=== PATIENT | male | born 1985 | race Caucasian/White ===

== ENCOUNTER 2024-06-15 01:12 | Inpatient (IN) | payer SELFPAY ==
[2024-06-14 19:19] VITALS: BP 157/100
[2024-06-14 19:34] LABS: Hematocrit 46.5 % (39.0-52.0); Hemoglobin 16.8 g/dL (13.0-18.0); Mean Corp Hgb Conc. 36.1 g/dL (33.0-37.0); Mean Corpuscular Hgb 30.4 pg (27.0-31.0); Mean Corpuscular Volume 84.1 fL (80.0-94.0); Mean Platelet Volume 10.2 fL (7.4-10.4); Platelet Count 187 10^3/uL (130-400); Red Blood Cell Count 5.53 10^6/uL (4.70-6.10); Red Cell Dist. Width 12.7 % (11.5-14.5); White Blood Cell Count 13.8 10^3/uL (4.8-10.8)
[2024-06-14 19:46] LABS: Lactic Acid 1.2 mmol/L (0.7-2.0)
[2024-06-14 19:47] LABS: ALT (SGPT) 37 U/L (0-50); AST (SGOT) 29 U/L (17-59); Albumin 4.9 g/dl (3.5-5.0); Alkaline Phosphatase 60 U/L (38-126); Blood Urea Nitrogen 16 mg/dl (9-20); Calcium 9.4 mg/dl (8.4-10.2); Carbon Dioxide 20 mmol/L (22-30); Chloride 102 mmol/L (98-107); Glucose 143 mg/dl (70-99); Lipase 72 U/L (23-300); Sodium 138 mmol/L (135-145); Total Bilirubin 0.9 mg/dl (0.2-1.3); Total Protein 7.3 g/dl (6.3-8.2); eGFR > 60.00
[2024-06-14 19:53] LABS: % Neutrophils 53.7 % (42.2-75.2)
[2024-06-14 19:54] LABS: % Basophils 0.5 % (0-2); % Eosinophils 1.2 % (0-6); % Immature Granulocytes 0.4 % (0-0.5); % Monocytes 8.2 % (1.7-9.3); Absolute Basophils 0.1 10^3/uL (0-0.2); Absolute Eosinophils 0.2 10^3/uL (0-0.7); Absolute Immature Granulocytes 0.1 10^3/uL (0-0.05); Absolute Monocytes 1.1 10^3/uL (0.1-0.6); Absolute Neutrophils 7.4 10^3/uL (1.4-6.5); Nucleated Red Blood Cells % 0 % (-)
[2024-06-14 22:07] VITALS: BMI 36.2
[2024-06-14 22:08] VITALS: BP 145/108
--- NOTE | 2024-06-14 22:28 | ED.GENMED ---
History of Present Illness
General
Chief Complaint: Abdominal Pain
Source: patient
Exam Limitations: none
Time Seen by Provider: 06/14/24 22:17
Nursing documentation reviewed up to this point in time: agreed with
History of Present Illness
History of Present Illness:
This a pleasant 38-year-old male that presents with right lower quadrant abdominal pain that has been present for the last 2 days. Patient states that he had 100.6 fever yesterday. He does report jarring motions exacerbate his symptoms. He did
report some nausea vomiting and diarrhea. Denies any previous abdominal surgeries. States that he does drink alcohol regularly. Has been eating and drinking normally. Has a history of IBS but states that this feels distinctly different.
Review of Systems
Review of Systems
Allergies reviewed?: Yes
All Other Systems: ROS reviewed and negative except as documented in HPI and ROS
Constitutional: Reports no symptoms
EENT: Reports no symptoms
Respiratory: Reports no symptoms
Cardiac: Reports no symptoms
ABD/GI: Reports abdominal pain, nausea, vomiting and diarrhea
: Reports no symptoms
Musculoskeletal: Reports no symptoms
Skin: Reports no symptoms
Neurological: Reports no symptoms
Endocrine: Reports no symptoms
Hematologic/Lymphatic: Reports no symptoms
Psychiatric: Reports anxiety
Phy Exam
General Physical Exam
General Presentation: well appearing and no apparent distress
General Skin: warm and dry
General Habitus: normal
General Mental: alert
General Hydration: appears well hydrated
ENT Exam
ENT Exam: EOMI, pharynx normal, neck supple and normocephalic
Eye Exam
Eye Exam: PERRL, cornea clear and conjunctiva normal
Cardiovascular Exam
Cardiovascular Exam: regular rate/rhythm, no edema, no murmur and normal peripheral pulses
Pulmonary Exam
Pulmonary Exam: lungs clear, no respiratory distress, no rales, no crackles, no rhonchi, no stridor, no wheezing and no cough
Gastrointestinal Exam
Gastrointestinal Exam: normal bowel sounds, soft, no organomegaly, no pulsatile mass and non distended
Palpation: right lower quadrant: Minimal tenderness
Neurological Exam
Neurological Exam: alert, oriented x3, no motor deficits and speech normal
Musculoskeletal Exam
Musculoskeletal Exam: full ROM and no edema
Skin Exam
Skin Exam: normal color, warm/dry, no rash and no petechia
Psychiatric Exam
Psychiatric Exam: normal mood/affect
Course
Orders/Labs/Results
Orders:
Orders
06/14/24 19:25
Complete Blood Count/With Diff Urgent
Comprehensive Metabolic Panel Urgent
Lactic Acid Urgent
Lipase Urgent
06/14/24 22:27
CT Abd/pelvis W Iv Cont Urgent
Comment:
Reason For Exam: rlq pain, x2 days
06/15/24 00:04
Piperacillin/Tazo 4.5 Gram [Zosyn] 4.5 gram in 100 ml IV NOW
06/15/24 Breakfast
NPO
Allow oral meds: Yes
Allow clear liquids: No
NPO with Ice Chips: Yes
Abnormal Lab Results
06/14/24
19:25
WBC 13.8 H 10^3/uL
(4.8-10.8)
Abs Immat Gran (auto) 0.1 H 10^3/uL
(0-0.05)
Absolute Neuts (auto) 7.4 H 10^3/uL
(1.4-6.5)
Absolute Lymphs (auto) 5.0 H 10^3/uL
(1.2-3.4)
Absolute Monos (auto) 1.1 H 10^3/uL
(0.1-0.6)
Carbon Dioxide 20 L mmol/L
(22-30)
Glucose 143 H mg/dl
(70-99)
06/14/24 19:25
06/14/24 19:25
Vital Signs
Initial and Last Documented VS:
Initial Vital Signs
Temp Pulse Resp BP Pulse Ox
98.6 F 71 18 157/100 95
06/14/24 19:19 06/14/24 19:19 06/14/24 19:19 06/14/24 19:19 06/14/24 19:19
Last Documented Vital Signs
Temp Pulse Resp BP Pulse Ox
98.3 F 74 18 129/97 98
06/14/24 22:07 06/15/24 00:03 06/14/24 19:19 06/15/24 00:00 06/15/24 00:01
*Radiology
Radiology exam reviewed: radiology read reviewed
*Pulse Oximetry
Patient hypoxic: no
*Critical Care Note
Total Time (30-74mins, 75-104mins- exclusive of procedures): Not Applicable
Update Note
Update Note:
CT A/P W/IV CONTRAST
IMPRESSION:
Borderline thickened/dilated appendix measuring up to 10.7 mm in diameter. There is subtle fat infiltration adjacent to the appendix. However no luminal distention with fluid.
This appearance could reflect very early appendicitis.
No free fluid or free air. No evidence of abscess formation.
Splenomegaly and prominent retroperitoneal and mesenteric adenopathy. These findings could be seen in the setting of malignancy such as lymphoma.
No colitis.
No evidence of small bowel obstruction.
No evidence of hydroureteronephrosis or obstructing stone.
Unremarkable appearance of the pelvic viscera.
No AAA.
Bilateral pars defects at L5 with associated grade 1 anterolisthesis.
Case discussed with Dr. Taylor at 1153pm ET.
Spoke with hospitalist and general surgeon Dr. Patel. He requested Zosyn. He requested hospitalist admission with oncology follow-up for the morning. Discussed this plan with patient who is in agreement to the admission. He understands the
possibility of having lymphoma and that a further workup will be needed.
ED Attending Note
-
Portions of this chart may have been created with voice recognition software.� Occasional wrong word or��sound alike� substitutions may have occurred due to the inherent limitations of voice recognition software.
Discharge Plan
Departure
Patient Disposition: Admit
Date of Disposition: 06/15/24
Time of Disposition: 00:01
Admit to: Telemetry
Presentation/result/management discussed w/ accepting MD/DO: Hospitalist
Condition: Good
Discharge Problem:
early appendicitis, Adenopathy, Splenomegaly
Referrals:
NONE,* [Family Provider] -
Interventions
Interventions:
*Risk Screen - Suicide Last Done: 06/14/24 19:19
*General Assessment Last Done: 06/14/24 19:19
*Neglect/Abuse Screening Last Done: 06/14/24 19:19
*ED COVID-19 Vaccine History Last Done: 06/14/24 22:07
OO-Xccoiy-Pikpyqjiai Assessment Last Done: 06/14/24 22:07
Discharge Date and Time
Print Language: DJIBOUTIAN
[2024-06-14 23:00] VITALS: BP 140/101
[2024-06-14 23:40] VITALS: BP 139/91
[2024-06-15] VITALS (13 sets, daily range): BP systolic 103–152; BP diastolic 52–99; BMI 35.7
[2024-06-15] MEDS: ZOSYN 100 IV (00:13)
--- NOTE | 2024-06-15 01:07 | HPS.HSE ---
Family Physician
-
Family Physician: * NONE
Chief Complaint
-
Abd Pain
History of Present Illness
Patient is a 38y M with no significant PMH who presents to ED complaining of abdominal pain. Patient states that he had severe abdominal pain the day prior to admission. pain was primarily in the central abdomen - but radiated throughout. Some
low back pain. Severe nausea without emesis. No diarrhea/ bloody stools. Patient had subjective fever and his measured temp at home was 100.6. He states that he feels much better today actually. His pain is now more localized to the RLQ. He
presented to the ED for evaluation - mostly at the urging of friends / family.
Medical History
Past Medical History
Past Medical History: Reports None
Past Surgical History: Reports Other
Additional Past Surgical History:
Left Ankle ORIF
Social History
Tobacco: Smoker (Current every day smoker. Approx 10 pack years total use.)
Alcohol: Daily (Daily beer intake averaging 8-10 per day.)
Drug: None
Family History
Family History: Other (Father: DM, Colon Polyps, CAD, A-Fib Mother: A-Fib)
Allergies / Home Medications
Allergies reflects when Allergies were last updated in [facility].
Home Medications with original date entered in [facility]
Allergy/Medication List:
Allergies
Allergy/AdvReac Type Severity Reaction Status Date / Time
No Known Allergies Allergy Unverified 06/14/24 22:52
Home Medications
No Meds [No Current Medications] 06/15/24
Review of Systems
-
History Source: Patient
A 12 point ROS was completed and negative except as noted: Yes
Constitutional: Reports Fever, Night Sweats and Chills; Denies Fatigue
Respiratory: Denies Cough or Trouble Breathing
Cardiac: Denies Chest Pain or Palpitations
Abdomen/GI: Reports Abdominal Pain, Nausea and Anorexia; Denies Vomiting, Diarrhea, Constipated, Bloody Stools or Black Stools
: Denies Dysuria, Frequency or Flank Pain
Musculoskeletal: Denies Joint Pain or Edema
Neurological: Denies Dizzy or Headache
Psych: Denies Depression or Anxiety
Physical Exam
Vital Signs
Vital Signs
Temp Pulse Resp BP Pulse Ox
98.3 F 74 18 136/96 95
06/14/24 22:07 06/15/24 00:03 06/14/24 19:19 06/15/24 01:00 06/15/24 01:00
Physical Exam
General: Other (38y M in no acute distress.)
HEENT: Moist mucous membranes and PERRLA
Respiratory: Clear; No Wheezes, Rales or Rhonchi
Cardiac: S1/S2 and Regular Rhythm; No Murmur
GI: Soft, Non Tender, Non Distended and Normal Bowel Sounds
Musculoskeletal: No Clubbing, No Cyanosis and No Edema
Neuro: AO x 3
Laboratory Results
-
06/14/24 19:25
06/14/24 19:
Laboratory Results
Lactic Acid 1.2 mmol/L (0.7-2.0) 06/14/24 19:25
Total Bilirubin 0.9 mg/dl (0.2-1.3) 06/14/24 19:25
AST 29 U/L (17-59) 06/14/24 19:25
ALT 37 U/L (0-50) 06/14/24 19:25
Alkaline Phosphatase 60 U/L (38-126) 06/14/24 19:25
Lipase 72 U/L (23-300) 06/14/24 19:25
Impression/Plan
-
A/P: Patient is a 38y M with no known PMH who presents to ED complaining of abdominal pain.
Acute Appendicitis
- Admit for further evaluation and treatment.
- Clinical presentation and exam / imaging findings seem c/w appendicitis.
- IV Zosyn for now, NPO, IVFs, etc.
- Surgery evaluation for additional recommendations / possible appendectomy.
Diffuse Adenopathy
- CT scan done in the ED this evening also shows significant retroperitoneal and mesenteric adenopathy.
- Doubtful that this can be explained by his appendicitis.
- Oncology consult for additional recommendations.
- Will need tissue biopsy - ? if this can be done coincident with appendectomy by surgery versus separate sampling done in IR.
- Further plan dependently upon biopsy results.
Alcohol Use Disorder
- Patient reports 8-10 beers daily on average.
- Monitor during stay for any evidence of withdrawal and treat as needed.
- Thiamine, folate, etc replacement.
Obesity due to excess calories
- Affects all aspects of care.
- Encourage healthy diet and increased activity with goal of weight loss.
- Decrease / cessation of alcohol intake would also likely aid this greatly.
DVT Prophylaxis: SCDs
Code Status: Full
[2024-06-15] MEDS: NSS 1000 IV ×3 (02:30→20:03)
--- NOTE | 2024-06-15 02:30 | PTCARENOTE ---
Pt is a 38y M with no significant PMH arrived on unit at 02:05 who presented to ED complaining of abdominal pain. Pt states that he had severe abdominal pain the day prior to admission, pain was primarily in the central abdomen, but radiated
throughout. Some low back pain. Severe nausea without emesis. No diarrhea/ bloody stools. Pt had subjective fever and his measured temp at home was 100.6. He states that he feels much better today actually. His pain is now more localized to
the RLQ. Preliminary Radiology report indicates suspected appendicitis. Splenomegaly and prominent retroperitoneal & mesenteric adenopathy indicates possible maligancy such as lymphoma. Pt is on MSAS, currently a zero. Pt AOx3, bed in a low
position, call light in reach.
[2024-06-15] MEDS: ZOSYN 50 IV ×4 (05:33→23:24)
[2024-06-15 07:24] LABS: Hematocrit 44.3 % (39.0-52.0); Hemoglobin 15.7 g/dL (13.0-18.0); Mean Corp Hgb Conc. 35.4 g/dL (33.0-37.0); Mean Corpuscular Hgb 30.2 pg (27.0-31.0); Mean Corpuscular Volume 85.2 fL (80.0-94.0); Mean Platelet Volume 10.1 fL (7.4-10.4); Platelet Count 144 10^3/uL (130-400); Red Cell Dist. Width 12.8 % (11.5-14.5); White Blood Cell Count 10.3 10^3/uL (4.8-10.8)
[2024-06-15 07:29] LABS: Blood Urea Nitrogen 14 mg/dl (9-20); Carbon Dioxide 20 mmol/L (22-30); Chloride 103 mmol/L (98-107); Estimated Creatinine Clearance > 125 ml/min; Glucose 103 mg/dl (70-99); Sodium 139 mmol/L (135-145); eGFR > 60.00
[2024-06-15 08:01] LABS: % Basophils 0.6 % (0-2); % Eosinophils 1.6 % (0-6); % Immature Granulocytes 0.4 % (0-0.5); % Lymphocytes 43.3 % (20.5-51.1); % Monocytes 6.9 % (1.7-9.3); % Neutrophils 47.2 % (42.2-75.2); Absolute Basophils 0.1 10^3/uL (0-0.2); Absolute Eosinophils 0.2 10^3/uL (0-0.7); Absolute Lymphocytes 4.5 10^3/uL (1.2-3.4); Absolute Monocytes 0.7 10^3/uL (0.1-0.6); Absolute Neutrophils 4.9 10^3/uL (1.4-6.5); Nucleated Red Blood Cells % 0 % (-)
--- NOTE | 2024-06-15 08:27 | W.PN.UPDATE ---
Update Note
Progress Note Update
38-year-old male presented with abdominal pain
I personally performed a history and physical exam of the patient and discussed management with the resident. I reviewed the resident's note and agree with the documented findings and plan of care HPI/CC except for changes in my documentation
CT scan of the abdomen and pelvis with IV contrast-appendix is mildly dilated with adjacent fat stranding suggestive of early appendicitis. Pathologic mesenteric and retroperitoneal adenopathy. Small hypoattenuating lesion in the liver. Bilateral
pars deficits L5. Grade 1 anterolisthesis L5 on S1
No generalized lymph node enlargement noted on exam
No hepatosplenomegaly
Abdomen soft mild tenderness in the right lower quadrant
# Acute abdominal pain
CT scan also shows significant retroperitoneal and mesenteric adenopathy
May need a biopsy
Acute appendicitis
Continue antibiotics
Surgery planning for OR
Surgeon is planning to do lymph node biopsy
# Alcohol use disorder
Uses 8-10 beers daily
Thiamine and folate replacement
Cessation counseling
MSAS Protocol
# Obesity per BMI criteria
# DVT prophylaxis-SCDs
# Full code
Discussed with hematology oncology at bedside
[2024-06-15 09:23] LABS: LDH 139 U/L (120-246)
--- NOTE | 2024-06-15 09:23 | W.SUR.PREOP ---
Pre-Operative Surgical Note
-
I have examined this patient prior to the performance of the scheduled procedure.
The patient's condition is unchanged from the time of the current History and
Physical and the patient is able to undergo the scheduled procedure.
--- NOTE | 2024-06-15 09:23 | CON.GS ---
Consultation
-
Date/Time Consultation Requested: 06/15/2024 midnight
Date/Time Consultation Performed: 06/15/2024 9 AM
Requesting Provider: Hospitalist
Performing Provider: Dr. Gibbs
Reason for Consultation: Acute appendicitis
Medical History
-
Chief Complaint: Abdominal pain
History of Present Illness:
This is a 38-year-old male with no significant past medical or surgical history but significant history of drinking and nicotine abuse (4-8 beers per day with roughly 1 to 2 packs of cigarettes per week) who presents with a 1 to 2-day history of
abdominal pain initially periumbilical then more localized to the right lower quadrant. Some subjective fevers at home, no nausea vomiting or diarrhea.
Past Medical History
Past Medical History: None
Past Surgical History: None
Social History
Tobacco: Smoker
Alcohol: Daily
Personal: Single
Employment: Employed
Family History
Family History: Reviewed & Not Pertinent
Allergies / Home Medications
Allergy/AdvReac Type Severity Reaction Status Date / Time
No Known Allergies Allergy Unverified 06/14/24 22:52
�Medication �Instructions �Recorded �Confirmed �Type
No Meds [No Current Medications] 06/15/24 06/15/24 History
Review of Systems
-
All other systems: Negative unless noted
A 10 point review of systems was completed, and was negative except as per HPI.
Physical Exam
Vital Signs
Temp Pulse Resp BP Pulse Ox
97.5 F 81 16 141/88 97
06/15/24 07:57 06/15/24 07:57 06/15/24 07:57 06/15/24 07:57 06/15/24 07:57
06/14/24 06/15/24 06/16/24
06:59 06:59 06:59
Actual Weight 125.872 kg
Body Mass Index (BMI) 35.7
Lab Results
06/15/24 06:38
06/15/24 06:38
WBC 10.3 10^3/uL (4.8-10.8) 06/15/24 06:38
Hgb 15.7 g/dL (13.0-18.0) 06/15/24 06:38
Hct 44.3 % (39.0-52.0) 06/15/24 06:38
Plt Count 144 10^3/uL (130-400) D 06/15/24 06:38
Abs Immat Gran (auto) 0.0 10^3/uL (0-0.05) 06/15/24 06:38
Neutrophils % 47.2 % (42.2-75.2) 06/15/24 06:38
Physical Exam
General: Well Developed
Respiratory: Clear
GI: Soft, Tender and Obese
Data Reviewed
-
CT Scan: Image Personally Visualized and interpreted, Report Reviewed by me and Discussed with Patient
Labs: Labs Reviewed by me, Discussed with Nurse and Discussed with Patient
Total Time Spent with Patient (in minutes): 30
Assessment / Plan
-
This is a 38-year-old male with a history significant for obesity (BMI 35), active EtOH and nicotine abuse who presents with 1 day history of abdominal pain. Exam, imaging, blood work all consistent with acute appendicitis. CT scan also noted
lymphadenopathy of unclear etiology.
Will plan for a laparoscopic appendectomy in the OR today. If there are any regional lymph nodes that are easy to biopsy we will obtain 1.
N.p.o., IV fluids, IV antibiotics.
Risks/Benefits/Alternatives, expected postoperative course and possible complications (bleeding, infection, injury to surrounding structures, acute/chronic pain) discussed at length. Patient wishes to proceed with surgery. All questions answered.
Consent obtained.
I spent roughly 60 minutes in total for the care of this patient today including direct patient care and counseling, reviewing labs, imaging, coordination of care, as well as documentation.
[2024-06-15] MEDS: THIAMINE INJECTION 200 MG IV ×2 (09:29→20:00)
[2024-06-15] MEDS: FOLVITE 1 MG PO (09:29)
--- NOTE | 2024-06-15 11:30 | CM ---
Reviewed the chart notes and spoke with the patient at the bedside. The patient expects to go to the OR today for appendectomy. CM consult for substance abuse received and discussed with the patient. Patient declined resources for substance
abuse. The patient resides with his mother in a one story home with no steps to enter. The patient reports no DME/VN/SNF in the past. The patient confirmed his pharmacy of choice is the [facility]. CM continues to be available to
patient/family and is monitoring medical plan for needs at discharge.
Plan: Discharge to home when medically stable. No needs anticipated.
--- NOTE | 2024-06-15 14:14 | W.IMMPOSTOP ---
Surgical Immed Post Op Note
-
Primary Surgeon: Luis Daniel Gibbs MD
Assisting Surgeon: None
Pre-op Diagnosis: Acute appendicitis, lymphadenopathy
Post-op Diagnosis: Same
Procedure Performed:
1. Laparoscopic appendectomy
2. Laparoscopic lymph node biopsy
Anesthesia Type: General
Specimen / Cultures:
1. Laparoscopic appendectomy
2. Periappendiceal lymph nodes (sent fresh, rule out lymphoma)
Estimated Blood Loss: 3 cc
Complications: None
Operative Findings: Retrocecal, inflamed but not perforated appendicitis. Base ligated with 2-0 PDS Endoloops. Lymphoid appearing tissue noted on the fold of Treves and some periappendiceal fat, both taken and sent as fresh specimens. Additional
5 mm port placed in the right upper quadrant to assist with exposure given appendiceal location and intra-abdominal obesity.
POST OP PLAN:
Imaging: None
Labs: Routine AM
Diet: Advance to Regular as tolerated
Analgesia: Tylenol 650mg q6 Zack, Renata 5mg q6 PRN, Dilaudid 0.5mg q2h PRN
Neuro/vascular checks: q4h
AC/AP: Hold Therapeutic AC, Ok for DVT PPx
Activity: Ad Evette
Wound/Incisions/Drains: Routine
Abx recommend 4 more days of antibiotics
Dispo: RNF, okay to NH home today versus tomorrow pending clinical course from surgical perspective. Patient will need to follow-up with a hematology oncology as an outpatient, could consider consulting them today to establish care.
--- NOTE | 2024-06-15 14:26 | OR.RPT ---
Operative Report
Operative Report
Patient Name: Keyshawn Ugalde
: 1985
Date of Operation: 06/15/2024
Preoperative Diagnosis: Acute Appendicitis, lymphadenopathy
Postoperative Diagnosis: Same
Procedure(s):
Laparoscopic Appendectomy
Laparoscopic lymph node biopsy
Surgeon(s):
Dr. Gibbs
Associate Designer(s):
GERMAN Puckett
Anesthesia: General
Estimated Blood Loss: 3 cc
Urine Output: None
Drains/Lines/Implants: None
Specimens:
1. Appendix
2. Periappendiceal lymph nodes
HPI/Surgical Indications:
This is a 38 year old male who presents with a 1 day history of abdominal pain. Exam, labs and imaging are consistent with acute appendicitis. Of note, the patient drinks heavily daily, as well as a active smoker and has morbid obesity with a BMI
of 35. Also, his CT scan demonstrated significant lymphadenopathy with mild splenomegaly and hepatomegaly with concern for lymphoma. Risks/Benefits/Alternatives were discussed at length, and the patient agreed to proceed with surgical removal of
the appendix as well as lymph node biopsy.
Operative Findings: Retrocecal, inflamed but not perforated appendicitis. Base ligated with 2-0 PDS Endoloops. Lymphoid appearing tissue noted on the fold of Treves and some periappendiceal fat, both taken and sent as fresh specimens. Additional
5 mm port placed in the right upper quadrant to assist with exposure given appendiceal location and intra-abdominal obesity.
Procedure Description:
The patient was placed in the supine position, with the left arm tucked, and general anesthesia was induced. The abdomen was prepared and draped in a sterile fashion so as to expose the entire abdomen. A surgical time out was taken. Abdominal access
was obtained with a left subcostal Veress technique which required a single pass followed by an infraumbilical 5 mm Optiview trocar entry. After confirming no injury on entrance, two additional 5mm ports were placed in the suprapubic area just off
midline and in the left lower quadrant. The patient was placed in Trendelenberg with the right slightly up. The base of the appendix was identified and appear to be coursing in a retrocecal location. Given the patient's body habitus and
intra-abdominal obesity it was difficult to expose this portion of the colon so an additional 5 mm port was placed in the right upper quadrant. My personal banking assistant was unable to retract the right colon medially helping expose the right colic gutter where
the peritoneal lining the appendix was divided freeing it up from the underlying tissues. A window was made in the mesentery of the appendix and freed all the way to the tip. The base of the appendix appeared uninvolved and was ligated with 2-0
PDS Endoloops followed by laparoscopic energy device. We then turned our attention to the surrounding fat and attempt to identify any lymph nodes. We did also briefly look at the liver and spleen which looked grossly normal. There was some
lymphoid tissue noted in some of the fat around the base of the terminal ileum and right colon which was carefully dissected out and removed. The specimens along with the appendix were placed in a 5 mm Endo Catch bag and passed off the field
separately. The lymph nodes were sent fresh to rule out lymphoma. Hemostasis was confirmed and the ports were then removed under direct visualization. The umbilical port was closed with 0 PDS suture. All ports were then closed with 4�0 Monocryl,
followed by Dermabond. The patient was awoken from anesthesia in good condition and transported to the recovery area.
I was the attending physician and performed the procedure with assistance from the DENTURE WAXER above. I was present for all portions of the case, excluding skin closure.
Luis Daniel Gibbs MD
[2024-06-15] MEDS: DILAUDID 0.5 MG IV (14:35)
[2024-06-15] MEDS: ZOFRAN 4 MG IV (14:40)
--- NOTE | 2024-06-15 14:54 | W.PN.HOSP.TC ---
Today's Communication/Plan
-
Can possibly be dischatged tomorrow
F/U with outpatient hem/oncology and general surgery
Can start clears first then transition to solids once tolerated
Assessment / Plan
Assessment / Plan
Impression
Acute appendicitis
Pathologic mesenteric and retroperitoneal lymphadenopathy
Alcohol use disorder
Assessment and Plan
Acute Appendicitis
s/p for appendicectomy
NPO
Will start on clears first to see hoe the patient tolerates.
D/c IV Zosyn
Repeat CBC
Pathological mesenteric and retroperitoneal lymphadenopathy
Biopsy taken duering the procedure and sent for evaluation
[place] on board
Alcohol use disorder
MSAS score 0
Continue thiamine, folate, multivitamin.
Code Status - FULL
Diet - clears
DVT ppx- Lovenox
Anticipated Discharge: Within 24 hours
Subjective/Interval History
-
Date of Service: June 15, 2024
No overnight events
Objective Data
-
Labs:
Laboratory Results
06/15/24
06:38
WBC 10.3
Hgb 15.7
Hct 44.3
Plt Count 144 D
Sodium 139
Potassium 4.0
Chloride 103
Carbon Dioxide 20 L
BUN 14
Creatinine 1.1
Glucose 103 H
Calcium 9.0
Vital Signs:
Vital Signs
Temp Pulse Resp BP Pulse Ox
98.3 F 65 4 113/70 96
06/15/24 14:45 06/15/24 14:30 06/15/24 14:30 06/15/24 14:47 06/15/24 14:30
I&O
06/14/24 06/15/24 06/16/24
06:59 06:59 06:59
Intake Total 625 / 625
Balance 625 / 625
Review of Systems
-
History Source: Patient
All other systems: Reviewed and negative
Physical Exam
-
General: No Apparent Distress
HEENT: Normocephalic and Atraumatic
Respiratory: Clear to Auscultation
Cardiac: Regular Rhythm and S1/S2
GI: Soft, Nondistended and Tender (right lower quad, McBurney's point tenderness, negative for roving's sign )
Musculoskeletal: No Edema
Neuro: AO x 3
Psych: Calm
Data Reviewed
-
CT Scan: Report Reviewed by me
Labs: Labs Reviewed by me and Discussed with Physician
--- NOTE | 2024-06-15 15:09 | PTCARENOTE ---
1502: Patient arrived back to 2S. 4 lap sites and 1 puncture site open to air with glue. AM assessment remains unchanged. Patient on RA with SpO2 greater than 92%. Call cervantes within reach and bed in lowest position. Family at bedside.
--- NOTE | 2024-06-15 15:20 | PTCARENOTE ---
MSAS completed at 1502 on arrival back to 2S from OR. Patient left unit at 1143 to go to OR. See worklist for MSAS documentation. Care ongoing at this time.
[2024-06-15] MEDS: ROXICODONE 5 MG PO ×2 (15:42→23:28)
--- NOTE | 2024-06-15 19:05 | CON.ONC ---
Impression
Impression
Acute appendicitis
Abdominal and retroperitoneal adenopathy
Tobacco use disorder
Alcohol use
Plan
Plan
Pt without symptoms or exam findings suggestive of lymphoma.
Lymphocyte count above normal is somewhat concerning but no smudge cells reported on smear.
Plan is noted for lymph node biopsy at time of appendectomy.
Await path.
Thank you for consult, will follow along with you.
Patient History
History of Present Illness
This is a 38-year-old male with no significant past medical or surgical history but significant history of drinking and nicotine abuse (4-8 beers per day with roughly 1 to 2 packs of cigarettes per week) who presents with a 1 to 2-day history of
abdominal pain initially periumbilical then more localized to the right lower quadrant. On CT he was noted to have acute appendicitis, but incidentally noted was adenopathy in the mesenteric, peripancreatic and retroperitoneal regions. He denies
fevers, chills, drenching night sweats prior to the acute presentation. He has not noted any swollen glands.
Past-Medical/Surgical History
Past Medical History
Past Medical History: None
Past Surgical History: None
Social History
Tobacco: Smoker
Alcohol: Daily
Personal: Single
Employment: Employed
Family History
Family History: Denies family history of cancer or blood disorders
Patient Medication
�Medication �Instructions �Recorded �Confirmed �Last Taken �Type
No Meds [No Current Medications] 06/15/24 06/15/24 Unknown History
Active Medications
Generic Name Dose Route Start Last Admin
Trade Name Freq PRN Reason Stop Dose Admin
Acetaminophen 650 mg 06/15/24 02:09
Acetaminophen 325 Mg Tablet PO 07/13/24 02:08
Q4HPRN PRN
Mild Pain / Temp > 101
Folic Acid 1 mg 06/15/24 08:00 06/15/24 09:29
Folic Acid 1 Mg Tablet PO 07/13/24 07:59 1 mg
DAILY RUFINA Administration
Hydromorphone HCl 0.5 mg 06/15/24 02:09
Hydromorphone 0.5 Mg/0.5 Ml Syringe IV 06/29/24 02:08
Q4HPRN PRN
Severe Pain
Hydromorphone HCl 0.5 mg 06/15/24 09:33 06/15/24 14:35
Hydromorphone 0.5 Mg/0.5 Ml Syringe IV 06/16/24 09:33 0.5 mg
PACU-Q5MPRN PRN Administration
severe pain
Hydromorphone HCl 0.25 mg 06/15/24 09:33
Hydromorphone 0.25 Mg/0.5 Ml Syringe IV 06/16/24 09:33
PACU-Q5MPRN PRN
moderate pain
Piperacillin Sod/Tazobactam Sod 3.375 gram in 50 mls @ 100 mls/hr 06/15/24 06:00 06/15/24 17:16
Zosyn IV 50 mls
Q6H RUFINA Administration
Sodium Chloride 1,000 mls @ 125 mls/hr 06/15/24 02:09 06/15/24 11:04
Nss IV 1,000 mls
.Q8H RUFINA Administration
Folic Acid 1 mg/ Sodium 50.2 mls @ 200.8 mls/hr 06/15/24 02:09
Chloride IV 07/13/24 02:08
DAILYPRN PRN
if NPO
Parenteral Electrolytes 1,000 mls @ 100 mls/hr 06/15/24 09:45
Normosol-R/Plasmalyte-A IV 06/16/24 09:33
PER PROTOCOL RUFINA
Lorazepam 1 mg 06/15/24 02:09
Lorazepam 1 Mg Tablet PO 07/13/24 02:08
Q2HPRN PRN
MSAS 5-7
Lorazepam 1 mg 06/15/24 02:09
Lorazepam 2 Mg/Ml Vial IV 07/13/24 02:08
Q1HPRN PRN
MSAS 8-11
Lorazepam 2 mg 06/15/24 02:09
Lorazepam 2 Mg/Ml Vial IV 07/13/24 02:08
Q1HPRN PRN
MSAS > 11
Meperidine HCl 12.5 mg 06/15/24 09:33
Meperidine 25 Mg/Ml Injection IV 06/16/24 09:33
PACU-Q5MPRN PRN
shivers
Oxycodone HCl 5 mg 06/15/24 15:20 06/15/24 15:42
Oxycodone 5 Mg Regular Release Tablet PO 06/29/24 15:19 5 mg
Q4HPRN PRN Administration
moderate pain
Prochlorperazine Edisylate 5 mg 06/15/24 09:33
Prochlorperazine 10 Mg/2 Ml Vial IV 06/16/24 09:33
PACU-ONCEPRN PRN
nausea/vomiting
Sodium Chloride 0 ml 06/15/24 02:09
Sodium Chloride 0.9% (Preservative Free) 10 Ml Vial IV 07/13/24 02:08
PRN PRN
To dilute IV Ativan
Protocol
Sodium Chloride 0 flush 06/15/24 03:00
Sodium Chloride 0.9% (Flush) Syringe IV 07/13/24 02:59
PER PROTOCOL RUFINA
Thiamine HCl 200 mg 06/15/24 08:00 06/15/24 09:29
Thiamine (100 Mg/Ml) 2 Ml Vial IV 06/17/24 20:01 200 mg
Q12 RUFINA Administration
Thiamine HCl 100 mg 06/18/24 08:00
Thiamine 100 Mg Tablet PO 07/16/24 07:59
BID RUFINA
Review of Systems
-
History Source: Patient and Records
All Other Systems: Reviewed and Negative
Constitutional: Reports Fever; Denies Weight Loss, Night Sweats or Weakness
EENT: Reports No Symptoms
Respiratory: Reports No Symptoms
Cardiac: Reports No Symptoms
GI: Reports Abdominal Pain; Denies Bloody Stools, Black Stools or Anorexia
Breast: Reports No Symptoms
: Reports No Symptoms
Musculoskeletal: Reports No Symptoms
Skin: Reports No Symptoms
Neuro: Reports No Symptoms
Endocrine: Reports No Symptoms
Hematologic/Lymphatic: Reports No Symptoms
Allergy / Immunology: Reports No Symptoms
Psych: Reports No Symptoms
Physical Exam
-
General: Well Developed, Well Nourished and No Apparent Distress
HEENT: Moist Mucous Membranes; Negative Jaundice
Cardiology: Normal Sinus Rhythm, S1 and S2
Pulmonary: Clear; Negative Wheezes or Rales
GI: Soft and Other (tender)
Genito-Urinary: No Costovertebral Tenderness
Musculoskeletal: No Clubbing, No Cyanosis and No Edema
Extremities: No C/C/E
Neurology: Non Focal
Skin: Warm and Dry
Hematologic / Lymphatic: No Lymphadenopathy (no cervical, supraclavicular, axillary or inguinal adenopathy)
Psych: Calm and Intact Judgement/Insight
Labs
Lab Results
WBC 10.3 10^3/uL (4.8-10.8) 06/15/24 06:38
RBC 5.20 10^6/uL (4.70-6.10) 06/15/24 06:38
Hgb 15.7 g/dL (13.0-18.0) 06/15/24 06:38
Hct 44.3 % (39.0-52.0) 06/15/24 06:38
MCV 85.2 fL (80.0-94.0) 06/15/24 06:38
MCH 30.2 pg (27.0-31.0) 06/15/24 06:38
MCHC 35.4 g/dL (33.0-37.0) 06/15/24 06:38
RDW 12.8 % (11.5-14.5) 06/15/24 06:38
Plt Count 144 10^3/uL (130-400) D 06/15/24 06:38
MPV 10.1 fL (7.4-10.4) 06/15/24 06:38
Abs Immat Gran (auto) 0.0 10^3/uL (0-0.05) 06/15/24 06:38
Absolute Neuts (auto) 4.9 10^3/uL (1.4-6.5) 06/15/24 06:38
Absolute Lymphs (auto) 4.5 10^3/uL (1.2-3.4) H 06/15/24 06:38
Absolute Monos (auto) 0.7 10^3/uL (0.1-0.6) H 06/15/24 06:38
Absolute Eos (auto) 0.2 10^3/uL (0-0.7) 06/15/24 06:38
Absolute Basos (auto) 0.1 10^3/uL (0-0.2) 06/15/24 06:38
Immature Gran % 0.4 % (0-0.5) 06/15/24 06:38
Neutrophils % 47.2 % (42.2-75.2) 06/15/24 06:38
Lymphocytes % 43.3 % (20.5-51.1) 06/15/24 06:38
Monocytes % 6.9 % (1.7-9.3) 06/15/24 06:38
Eosinophils % 1.6 % (0-6) 06/15/24 06:38
Basophils % 0.6 % (0-2) 06/15/24 06:38
Creatinine 1.1 mg/dL (0.7-1.3) 06/15/24 06:38
Vital Signs
Vital Signs
Temp Pulse Resp BP Pulse Ox
97.2 F 64 19 152/99 98
06/15/24 17:56 06/15/24 17:56 06/15/24 17:56 06/15/24 17:56 06/15/24 17:56
[2024-06-16 00:15] VITALS: BP 156/96
[2024-06-16] MEDS: NSS 1000 IV (01:14)
[2024-06-16 03:43] VITALS: BP 136/69
[2024-06-16] MEDS: ZOSYN 50 IV (05:46)
[2024-06-16] MEDS: FOLVITE PO (07:23)
[2024-06-16] MEDS: THIAMINE INJECTION IV (07:23)
[2024-06-16] MEDS: ROXICODONE 5 MG PO (07:24)
[2024-06-16 07:52] VITALS: BP 147/104
--- NOTE | 2024-06-16 08:13 | W.PN.GS2 ---
Today's Communication / Plan
-
-- Abx: Zosyn, needs total of 4 days abx on DC
-- OK for DC from surgical standpoint
Assessment / Plan
-
Patient is a 38 yo M POD#1 s/p laparoscopic appendectomy
Recovering well. No postoperative concerns.
-- Regular diet
-- Pain control: Tylenol, Toradol, Oxycodone
-- HLIV
-- Abx: Zosyn, needs total of 4 days abx on DC
-- DC instructions updated
-- F/u with Dr. Gibbs
-- OK for DC from surgical standpoint
Subjective Data
-
Date of Service: June 16, 2024
No major complaints. Reports abdominal soreness with bending and twisting. No nausea or vomiting. No fevers or chills.
Objective Data
-
Intake and Output
06/15/24 06/16/24 06/17/24
06:59 06:59 06:59
Intake Total 625 / 625 4980 / 4980 480 / 480
Balance 625 / 625 4980 / 4980 480 / 480
Intake:
Oral fluids 1680 / 1680 480 / 480
IV fluids (Total) 575 / 575 3100 / 3100
Normosol 100 / 100
IV piggybacks 50 / 50 200 / 200
Other:
Number of approximated MODERATE 2 2
amounts of urine
Number of approximated LARGE 1 1
amounts of urine
Vital Signs
Temp Pulse Resp BP Pulse Ox
98 F 77 20 147/104 98
06/16/24 07:52 06/16/24 07:52 06/16/24 07:52 06/16/24 07:52 06/16/24 07:52
Lab Results
06/15/24 06:38
06/15/24 06:38
Calcium 9.0 mg/dl (8.4-10.2) 06/15/24 06:38
Total Bilirubin 0.9 mg/dl (0.2-1.3) 06/14/24 19:
AST 29 U/L (17-59) 06/14/24:
ALT 37 U/L (0-50) 06/14/24:
Alkaline Phosphatase 60 U/L (38-126) 06/14/24 19:
Total Protein 7.3 g/dl (6.3-8.2) 06/14/24:
Albumin 4.9 g/dl (3.5-5.0) 06/14/24:
Physical Exam
-
Gen: NAD
Abd: soft, minimal tenderness, ND, non-peritoneal, incisions c/d/i - no erythema or drainage, mild ecchymosis at LLQ incision
--- NOTE | 2024-06-16 09:25 | W.PN.UPDATE ---
Update Note
Progress Note Update
38-year-old male presented with abdominal pain
I personally performed a history and physical exam of the patient and discussed management with the resident. I reviewed the resident's note and agree with the documented findings and plan of care HPI/CC except for changes in my documentation
CT scan of the abdomen and pelvis with IV contrast-appendix is mildly dilated with adjacent fat stranding suggestive of early appendicitis. Pathologic mesenteric and retroperitoneal adenopathy. Small hypoattenuating lesion in the liver. Bilateral
pars deficits L5. Grade 1 anterolisthesis L5 on S1
No generalized lymph node enlargement noted on exam
No hepatosplenomegaly
Abdomen soft, laparotomy wound stable. Minor bruising
# Acute abdominal pain
CT scan also shows significant retroperitoneal and mesenteric adenopathy
Status post appendectomy 06/15/2024
Patient doing well
Lymph node biopsy performed
# Alcohol use disorder
Uses 8-10 beers daily
Thiamine and folate replacement
Cessation counseling
MSAS Protocol
# Obesity per BMI criteria
# DVT prophylaxis-SCDs
# Full code
D/W RN
Patient is aware that he needs to follow-up with surgeon and get biopsy results and that he may need further follow-up or treatment according to that.
Part of this note was created using voice recognition system. Occasional wrong word or��sound alike� substitutions may have inadvertently occurred due to the inherent limitations of voice recognition software. If noted kindly bring it to my
attention for correction.
Discharge
--- NOTE | 2024-06-16 09:39 | W.DCSUMMARY ---
Discharge Summary
Discharge Data
Date of Admission: 06/15/24
Date of Discharge: 06/16/24
-
Pending Results: No
Hospital Course
Discharging Physician : Dr Dennis Pope, Dr Heidi Paiz
Disposition : Home
Primary care physician : Unknown
Principal Discharge diagnosis :
Acute appendicitis
Pathologic mesenteric and retroperitoneal lymphadenopathy
Alcohol use disorder
Chronic Discharge diagnosis : Alcohol use, tobacco use
Hospital Course : 38-year-old male current tobacco user presented to the ED with diffuse abdominal pain, nausea. In the ED patient was hemodynamically stable. Patient was started on IV fluids and given CT scan of the abdomen pelvis shows
inflammation of the appendix with adjacent fat stranding. There was an incidental finding of retroperitoneal lymphadenopathy. On physical exam, Mcburney's pint tenderness, normal BS, soft, nondistended. General surgery was consulted. and
laparoscopic appendicectomy was planned. Hematology/oncology were also consulted for the abnormal incidental lymphadenopathy. On physical exam they did not find anything pertinent. It was decided for lymph node biopsy during the surgery. Patient
was kept n.p.o. after midnight. Surgery was uneventful. Biopsy of periappendiceal lymph node was taken and specimen was sent to pathology. Patient was able to tolerate regular diet after surgery. Patient reported of mild abdominal pain while
getting out of the bed. On the day of discharge he is hemodynamically stable. No new changes in labs. No alcohol withdrawal noted during the hospital stay.
Advised the patient to follow-up with general surgery in 2 to 3 weeks. Recommended Tylenol and ibuprofen for pain management
Important imaging findings :
Abdominal/pelvis CT 06/14/24
1. The appendix is mildly dilated with adjacent fat stranding, suggestive of early appendicitis. No abdominal pelvic abscess.
2. Pathologic mesenteric and retroperitoneal lymphadenopathy, highly concerning for lymphoma. Consider PET/CT for further evaluation.
3. Small hypoattenuating lesion within the liver, which is incompletely characterized.
4. Bilateral pars defects at L5. Grade 1 anterolisthesis of L5 on S1.
Procedure findings : none
Discharge Plan
-
Patient Disposition: Home (Routine Discharge)
Discharge Diagnosis/Procedures: Acute appendicitis
Lymphadenopathy
Condition: Good
Diet: As tolerated
Activity: No strenuous activity
Driving Restrictions: No driving for 24 hours
Bathing Restrictions: OK to Shower
Activity Restrictions/Additional Instructions:
Instructions following Laparoscopic appendectomy
Please call [phone] if you have any questions or concerns after your surgery.
Wound Care:
Your incisions are covered with skin glue which will come off on it�s own in 5-10 days.
It is ok to shower the day after your surgery. Do not scrub the incisions, let soap and water wash over them and pat dry.
� Bruising around your incisions is normal.
� Using ice packs will help minimize this swelling.
� No swimming or soaking incisions for 1 week.
� Your stitches will dissolve and do not need to be removed.
Urinary retention:
If you are unable to urinate 6-8 hours after your surgery, please call [phone] to discuss further management.
Activity:
No heavy lifting more than 15 pounds for the next 3 weeks, then you may gradually lift heavier objects as tolerated by discomfort. Otherwise activity as tolerated by your comfort level.
Pain Management:
Use Tylenol, ibuprofen and ice packs to treat your pain.
� You may take 650 milligrams of Tylenol (Max 3 grams per day) every 6 hours, and 600 mg of ibuprofen also every 6 hours. (you can alternate them every 3 hours)
� You may use an ice pack to your incision as needed.
� If you still have pain not controlled by these measures, take your prescription pain medication as prescribed.
Medications:
You may resume your home medications.
Bowel Medications:
Prescription pain medication can make you constipated. If you take this medication, also take colace 100 mg twice daily (this is over the counter). If this is not sufficient, you may take Miralax (polyethylene glycol) to help move your bowels.
Diet:
After your procedure, there are no dietary restrictions.
Driving restrictions:
No driving if you are taking prescription pain medication or if you think your normal reaction time and attentiveness has been slowed by your surgery.
Things to Look out for:
Worsening Abdominal pain, redness or drainage from incision
Call Doctor for:
Please call if you notice worsening redness or drainage from incision(s) lasting longer than 5 days after your surgery, any foul-smelling drainage from the incision, pain not controlled by pain medications, persistent nausea and vomiting, or for any
fevers greater than 101.3 F. The number for questions/concerns is [phone]
Follow-up:
Follow-up appointment will be scheduled with your surgeon in 3-4 weeks. Please call prior to your appointment if you have any questions or concerns. [phone]
It is very important that you follow up on the biopsy results. You may need additional treatment. Take Ibuprofen only on full stomach to avoid nausea and heart burn.
Get blood pressure re checked with PCP office.
Referrals:
Oneida Baugh MD [Active] -
Luis Daniel Gibbs MD [Active] - in two to four weeks
Additional Discharge Medication Instructions: Tylenol and Ibuprofen for pain control. Please follow up with general surgery.
Prescriptions:
No Action
No Current Medications
0
Discharge Orders:
Discharge Patient (As Directed); Ordered 06/16/24
Ordered By: Dennis Pope
Discharge Date and Time
Discharge Date/Time: 06/16/24 08:29
Print Language: PARAGUAYAN
--- NOTE | 2024-06-16 09:39 | W.PN.HOSP.TC ---
Today's Communication/Plan
-
Discharge today
Follow up with general surgery in2-3 weeks
Pathology results are pending. Unremarkable on physical exam
Assessment / Plan
Assessment / Plan
Impression
Acute appendicitis
Pathologic mesenteric and retroperitoneal lymphadenopathy
Alcohol use disorder
Assessment and Plan
Acute Appendicitis
s/p for appendicectomy
NPO
Will start on clears first to see hoe the patient tolerates.
D/c IV Zosyn
Patient is stable to be discharged today. Advised tylenol and ibuprofen to manage pain.
F/u outpatient with surgery
Pathological mesenteric and retroperitoneal lymphadenopathy
Biopsy taken during the procedure and sent for evaluation
Pathology results are pending
Alcohol use disorder
MSAS score 0
Continue thiamine, folate, multivitamin.
Code Status - FULL
Diet - clears
DVT ppx- Lovenox
Anticipated Discharge: Today
Subjective/Interval History
-
Date of Service: June 16, 2024
Patient is stable, mild pain around the incision site while getting out of the bed.
Objective Data
-
Vital Signs:
Vital Signs
Temp Pulse Resp BP Pulse Ox
98 F 77 20 147/104 98
06/16/24 07:52 06/16/24 07:52 06/16/24 07:52 06/16/24 07:52 06/16/24 07:52
I&O
06/15/24 06/16/24 06/17/24
06:59 06:59 06:59
Intake Total 625 / 625 4980 / 4980 480 / 480
Balance 625 / 625 4980 / 4980 480 / 480
Review of Systems
-
History Source: Patient
All other systems: Reviewed and negative
Physical Exam
-
General: No Apparent Distress
HEENT: Normocephalic and Atraumatic
Respiratory: Clear to Auscultation
Cardiac: Regular Rhythm and S1/S2
GI: Soft, Nondistended and Tender (on the incision sites )
Data Reviewed
-
Labs: Labs Reviewed by me and Discussed with Physician
== END 2024-06-16 08:29 | disposition home or self-care (01) | DRG 398 ==
LOC: 2 SOUTH 01:12
PROVIDERS: Emergency Medicine; Student in an Organized Health Care Education/Training Program; ADMITTING PHYSICIAN Hospitalist; ATTENDING PHYSICIAN Hospitalist; CONSULT PHYSICIAN Surgery; EMERGENCY PHYSICIAN Student in an Organized Health Care Education/Training Program; OTHER PHYSICIAN Internal Medicine Hematology & Oncology
PROC: 07BB4ZX Excision of Mesenteric Lymphatic, Percutaneous Endoscopic Approach, Diagnostic (ICD-10-PCS; 2024-06-15)
PROC: 0DTJ4ZZ Resection of Appendix, Percutaneous Endoscopic Approach (ICD-10-PCS; 2024-06-15)
DX: K35.80 Unspecified acute appendicitis (principal); C88.4 Extranodal marginal zone B-cell lymphoma of mucosa-associated lymphoid tissue [MALT-lymphoma]; E66.09 Other obesity due to excess calories; R16.1 Splenomegaly, not elsewhere classified; F17.210 Nicotine dependence, cigarettes, uncomplicated; M43.17 Spondylolisthesis, lumbosacral region; K58.9 Irritable bowel syndrome, unspecified; M54.50 Low back pain, unspecified; F10.90 Alcohol use, unspecified, uncomplicated; Z68.36 Body mass index [BMI] 36.0-36.9, adult
CPT/HCPCS: 88304; 74177; 80048; 80053; 83605; 83615; 83690; 85025; 88342; 88365; 96365; 99285; 99406; C1776; Q9967

== ENCOUNTER → 2024-07-28 09:01 | Outpatient (REF) | payer OTHER, SELFPAY ==
[2024-07-28] VITALS (7 sets, daily range): BP systolic 63–136; BP diastolic 74–88
[2024-07-28 09:35] LABS: % Basophils 0.6 % (0-2); % Immature Granulocytes 0.6 % (0-0.5); % Lymphocytes 41.2 % (20.5-51.1); % Monocytes 7.4 % (1.7-9.3); % Neutrophils 48.2 % (42.2-75.2); Absolute Basophils 0.1 10^3/uL (0-0.2); Absolute Eosinophils 0.2 10^3/uL (0-0.7); Absolute Immature Granulocytes 0.1 10^3/uL (0-0.05); Absolute Lymphocytes 4.3 10^3/uL (1.2-3.4); Absolute Monocytes 0.8 10^3/uL (0.1-0.6); Hematocrit 44.5 % (39.0-52.0); Hemoglobin 15.5 g/dL (13.0-18.0); Mean Corp Hgb Conc. 34.8 g/dL (33.0-37.0); Mean Corpuscular Volume 86.2 fL (80.0-94.0); Mean Platelet Volume 9.7 fL (7.4-10.4); Nucleated Red Blood Cells % 0 % (-); Platelet Count 151 10^3/uL (130-400); Red Blood Cell Count 5.16 10^6/uL (4.70-6.10); Red Cell Dist. Width 13.2 % (11.5-14.5); White Blood Cell Count 10.3 10^3/uL (4.8-10.8)
[2024-07-28 09:39] LABS: PT 11.9 Sec (11.4-14.6)
[2024-07-28] MEDS: ATIVAN 0.5 MG IV (10:07)
[2024-07-28] MEDS: NSS (PRESERVATIVE FREE) 0.25 ML IV (10:07)
[2024-07-28] MEDS: FLUSH (NSS) 1 FLUSH IV (10:08)
== END ==
LOC: RADI 09:01
PROVIDERS: ATTENDING PHYSICIAN Internal Medicine Hematology & Oncology
DX: C88.41 Extranodal marginal zone B-cell lymphoma of mucosa-associated lymphoid tissue [MALT-lymphoma], in remission (principal); Z01.812 Encounter for preprocedural laboratory examination; Z01.818 Encounter for other preprocedural examination
CPT/HCPCS: 88305; 88311; 88312; 36415; 38222; 77012; 85025; 85610; 88313